=== PATIENT | female | born 1960 | race Caucasian/White ===

== ENCOUNTER → 2021-06-07 | Outpatient (CLI) | payer OTHER ==
[~2021-06-07] MED LIST: DAYPRO600 M1 PO; LEVAQUIN250 MG PO; PHENERGAN25 M1 PO; ROBAXIN750 MG PO; SKELAXIN800 MG PO
== END | disposition home or self-care (01) ==
LOC: COVID19 17:30
PROVIDERS: ATTEND Internal Medicine
DX: Z11.52 Encounter for screening for COVID-19 (principal)